=== PATIENT | male | born 2000 | race Caucasian/White ===

== ENCOUNTER 2020-04-30 22:46 | Emergency (ER) | payer BC ==
[2020-04-30 22:54] VITALS: TEMP 99.2
--- NOTE | 2020-04-30 23:08 | ED ---
Upper Extremity HPI <Shanita Krishna - Last Filed: 05/01/20 01:06> - General Source: patient Mode of arrival: ambulatory Limitations: no limitations - History of Present Illness MD Complaint: Injury to:: right, elbow, wrist Onset/Timin -: hour(s) Other Extremity Injury: Wrist: Right, Elbow: Right Other Injuries: none Handedness: right Place: outdoors Improves With: cold therapy, immobilization Worsens With: movement of extremity Context: fall, skateboard accident Associated Symptoms: denies other symptoms Treatments Prior to Arrival: cold therapy <JazzJonny - Last Filed: 05/01/20 08:01> - General Chief Complaint: Extremity Injury, Upper Stated Complaint: Arm injury Time Seen by Provider: 04/30/20 22:55 - Related Data Previous Rx's Medication Instructions Recorded Hydrocodone/Acetaminophen [Mccall 1 each PO Q6HR PRN #20 tab 05/01/20 5-325] Ibuprofen 800 mg PO TID #20 tablet 05/01/20 Allergies Allergy/AdvReac Type Severity Reaction Status Date / Time No Known Allergies Allergy Verified 04/30/20 22:54 Review of Systems ROS Other: All systems not noted in ROS Statement are negative. <JanepabloShanita - Last Filed: 05/01/20 01:06> ROS Other: All systems not noted in ROS Statement are negative. Constitutional: Denies: weakness Cardiovascular: Denies: chest pain Gastrointestinal: Denies: abdominal pain Musculoskeletal: Reports: as per HPI, joint swelling, arthralgia. Denies: back pain Skin: Denies: lesions Neurological: Denies: headache, weakness, numbness, paresthesias <Jonny Schulz - Last Filed: 05/01/20 08:01> ROS Statement: Those systems with pertinent positive or pertinent negative responses have been documented in the HPI. Past Medical History Past Medical History: No Reported History History of Any Multi-Drug Resistant Organisms: None Reported Past Surgical History: No Surgical Hx Reported Additional Past Surgical History / Comment(s): scrotal surgery Past Psychological History: No Psychological Hx Reported Smoking Status: Never smoker Past Alcohol Use History: Occasional Past Drug Use History: None Reported <Jonny Schulz - Last Filed: 05/01/20 08:01> General Exam Limitations: no limitations General appearance: alert, in no apparent distress Head exam: Present: atraumatic, normocephalic Cardiovascular Exam: Present: other (Right radial and ulnar pulses are normal in strength. Normal capillary refill throughout the right upper extremity.) Extremities exam: Present: tenderness, normal capillary refill Right Shoulder Exam: Present: normal inspection, full ROM. Absent: tenderness, swelling, abrasion, laceration, ecchymosis, deformity Upper Arm exam: Present: normal inspection, full ROM. Absent: tenderness, swelling, abrasion, laceration, ecchymosis Elbow exam: Present: tenderness, swelling, abrasion. Absent: laceration, ecchymosis, deformity, crepitus, dislocation, erythema, effusion Forearm Wrist exam: Present: tenderness, swelling. Absent: abrasion, laceration, ecchymosis, deformity, crepitus, dislocation, erythema, tenderness over anatomical snuff box, pain with axial thumb loading Hand Wrist exam: Present: normal inspection, full ROM. Absent: tenderness, swelling, abrasion, laceration, ecchymosis, deformity, crepitus, dislocation, erythema, amputation Neuro motor exam: Present: wrist extension intact, thumb opposition intact, thumb IP flexion intact, thumb adduction intact, fingers 2-5 abduction intact Neurosensory exam: Present: 2-point discrimination Vascular: Present: normal capillary refill. Absent: pulse deficit radial art, pulse deficit ulnar art Back exam: Present: normal inspection. Absent: CVA tenderness (R), CVA tenderness (L) Neurological exam: Present: alert, motor sensory deficit Skin exam: Present: warm, dry, normal color, abrasion. Absent: rash <Jonny Schulz - Last Filed: 05/01/20 08:01> Course Vital Signs 04/30/20 05/01/20 22:48 01:39 Temperature 99.2 F Pulse Rate 81 76 Respiratory 16 18 Rate Blood Pressure 122/80 120/78 O2 Sat by Pulse 96 98 Oximetry Procedures - Orthopedic Splinting/Casting Injury #1 Side: left Upper Extremity Injury Location: elbow, wrist Upper Extremity Immobilizer: sling/shoulder immobilizer, sugar tong splint, thumb spica, Tin wrap, synthetic pre-padded splint <Shanita Krisnha - Last Filed: 05/01/20 01:06> - Orthopedic Splinting/Casting Injury #1 Additional Comments: was reevaluated after splint was applied and is neurovascularly intact. (Shanita Krishna) Medical Decision Making <Jonny Schulz - Last Filed: 05/01/20 08:01> - Medical Decision Making Patient is 19-year-old man with fall from skateboarding resulting in scaphoid fracture and radial head fracture. Discussed the critical importance of follow- up with orthopedics to ensure that there is no complication with his healing. Patient will follow with orthopedics, returning here if there is any difficulty with the follow-up plan, if there is any worsening. (Jonny Schulz) Disposition <Shanita Krishna - Last Filed: 05/01/20 01:06> Is patient prescribed a controlled substance at d/c from ED?: Yes When asked, does pt state using other controlled substances?: No If prescribed controlled substance>3 days was MAPS reviewed?: Prescribed <3 Days If opioid is for acute pain is fill amount 7 days or less?: Yes If Rx opioid, was Start Talking consent form obtained?: Yes <Jonny Schulz - Last Filed: 05/01/20 08:01> Clinical Impression: Scaphoid fracture, Radial head fracture Disposition: HOME SELF-CARE Condition: Good Instructions (If sedation given, give patient instructions): Elbow Fracture (ED), Scaphoid Fracture (ED) Prescriptions: Ibuprofen 800 mg PO TID #20 tablet Hydrocodone/Acetaminophen [Mccall 5-325] 1 each PO Q6HR PRN #20 tab PRN Reason: Pain Referrals: None,Stated [Primary Care Provider] - 1-2 days Stephan France DO [Doctor of Osteopathic Medicine] - 1-2 days
--- NOTE | 2020-04-30 23:47 | XR ---
EXAMINATION TYPE: XR wrist complete RT DATE OF EXAM: 04/30/2020 COMPARISON: NONE HISTORY: Pain TECHNIQUE: 4 views FINDINGS: There is nondisplaced fracture of the waist of the scaphoid bone. There is no dislocation. Joint spaces are normal. Metacarpals are intact. Distal radius and ulna appear intact. IMPRESSION: Nondisplaced scaphoid fracture.
--- NOTE | 2020-04-30 23:48 | XR ---
EXAMINATION TYPE: XR elbow complete RT DATE OF EXAM: 04/30/2020 COMPARISON: NONE HISTORY: Fall. Pain. TECHNIQUE: 3 views FINDINGS: There is elbow joint effusion. There is posterior fat pad sign. On the oblique view there a ppears to be nondisplaced transverse fracture of the neck of the radial head. There is no dislocation . IMPRESSION: Nondisplaced radial head fracture. Elbow joint effusion.
[2020-05-01] MEDS ORDERED: IBUPROFEN 400 MG TAB PO STA (01:15)
[2020-05-01] MEDS ORDERED: HYDROcodone/APAP 5-325MG 1 EACH TAB PO STA (01:16)
[2020-05-01 01:41] VITALS: BP 120/78; PULSE 76; RESP 18
== END 2020-05-01 01:40 | disposition home or self-care (01) ==
LOC: EC 22:46
DX: S52.124A Nondisplaced fracture of head of right radius, initial encounter for closed fracture (principal); S62.001A Unspecified fracture of navicular [scaphoid] bone of right wrist, initial encounter for closed fracture; V00.131A Fall from skateboard, initial encounter; Y93.51 Activity, roller skating (inline) and skateboarding
CPT/HCPCS: 29105; 99283